=== PATIENT | male | born 1940 | race Caucasian/White ===

== ENCOUNTER 2016-07-31 13:30 | Inpatient (IN) | payer OTHER, MEDICARE ==
[2016-07-31] MEDS ORDERED: HEPARIN 10,000 UNIT/10 ML MDV IVP PRN (15:01)
[2016-07-31] MEDS ORDERED: HEPARIN 10,000 UNIT/10 ML MDV IVP ONE (15:01)
[2016-07-31 15:33] LABS: % IMMATURE GRANULYOCYTES 1.1 % (0.0-1.1); ABSOLUTE IMMATURE GRANULOCYTES 0.12 10^3/uL (0.00-0.10); ADD DIFF? NO; ADD MORPH? NO; ADD SCAN? NO; ATYPICAL LYMPHOCYTE FLAG 0 (0-99); FRAGMENT RBC FLAG 0 (0-99); LEFT SHIFT FLG 0 (0-99); LIPEMIA HEMOLYSIS FLAG 90 (0-99); MEAN CELL HEMOGLOBIN 34.1 pg (27.9-34.1); MEAN CELL HEMOGLOBIN CONCENTR. 34.1 g/dL (32.4-36.7); MEAN PLATELET VOLUME 9.4 fL (8.7-11.7); PLATELET CLUMPS FLAG 0 (0-99); PLATELET COUNT 194 10^3/uL (150-400); RED CELL DISTRIBUTION WIDTH 13.7 % (11.5-15.2)
[2016-07-31 15:37] LABS: INR 1.04 (0.83-1.16); PROTIME(PATIENT) 13.5 SEC (12.0-15.0)
[2016-07-31 15:38] LABS: APTT 23.5 SEC (23.0-38.0)
[2016-07-31] MEDS: HEPARIN/DEXTROSE 500 ML IV SCH (16:23)
[2016-07-31] MEDS ORDERED: MIDAZOLAM 2 MG/2 ML VIAL ONE (17:39)
[2016-07-31] MEDS ORDERED: fentaNYL 100 MCG/2 ML INJ ONE (17:39)
--- NOTE | 2016-07-31 18:23 | SOAPPROG ---
SOAP Progress Note Assessment/Plan: Assessment: Plan: 07/31/16 18:26 1. Pulmonary embolism: Extensive PE, L>R. Pulmonary consult requested and bilateral lower extremity venous doppler obtained showing DVT in R superficial femoral vein (presumably, though dictation states artery), extending between groin and mid-thigh. CT angiogram reviewed by Dr. Snowden, Dr. Soni, Dr. Whalen, and Dr. Duran. Was not felt that pt had saddle embolus, but did have large clot burden on L involving pulmonary artery, and that placement of filter was appropriate. Pt has since had that done, and is now on heparin drip. Per discussion with Dr. Snowden, tpa not appropriate given recent surgery. 2. RLE DVT 3. Hypertension: will continue lisinopril. 4. CAD: asymptomatic. On fish oil, vitamin D, K2. 5. Asthma: stable on Symbicort 6. Neuropathy: on gabapentin 7. recent R shoulder replacement. Subjective: 76 yo male with hx htn, mild CAD by coronary calcium scanning underwent R shoulder replacement 07/23/16 in [place]. Mobilized in hospital shortly after surgery, was placed on aspirin, and discharged to home on 07/26/16 feeling well. Is a hiker and was able to go on a 3-4 mile walk the day after discharge without any SOB, weakness. Yesterday afternoon, climbed a hill near his home that usually presents no difficulty and noted some heaviness in his legs and labored breathing. Rested when he returned home and had no further sx last night. Slept well. This morning, attempted to ride his stationary bike but felt too tired to pedal. Went upstairs and couldn't climb stairs without feeling very SOB and stopping to rest enroute. Chest felt tight. He did take a baby aspirin last night and this morning. He had also noticed that he was saturating in the upper 80s at home and that his heart rate was in the 90s. Usually he is in the 50s. He called the office this morning and came in. He was noted to be hypoxic, saturating 87% on RA, with a relative tachycardia of 89. RR was 16, and he was afebrile. EKG showed NSR with rate of 87, 1st degree heart block, and severe RAD. This was similar to EKG done 07/09/16. He'd had labs done on , and creatinine at that time was 1.0. CT angiogram was done in the office and showed extensive PE, primarily on the L side, though also involving the R side. I spoke with Dr. Soni and there was some question of saddle embolus, so he was admitted directly to the ICU. I also spoke with Dr. Snowden, requesting a pulmonary consult. Objective: Vital Signs Temp Pulse Resp BP Pulse Ox 36.8 C 92 14 137/84 H 97 07/31/16 16:00 07/31/16 17:00 07/31/16 17:00 07/31/16 17:00 07/31/16 17:00 Laboratory Results 07/31/16 15:20 PT 13.5 SEC (12.0-15.0) 07/31/16 15:20 INR 1.04 (0.83-1.16) 07/31/16 15:20 General: well-developed, well-nourished, not feeling well but NAD HEENT: PERRL, EOMI. Throat without erythema, exudate Neck: no masses, adenopathy Lungs: clear bilaterally Cardiovascular: RRR without murmur Chest: diffuse ecchymoses Extremities: no clubbing, cyanosis, edema Neurologic: moving all extremities except R shoulder which is guards carefully Psychiatric: alert, oriented ICD10 Worksheet Patient Problems: Problems Problem Status Onset DVT (deep venous thrombosis) Acute Pulmonary embolism Acute
--- NOTE | 2016-07-31 18:24 | POSTOPPROG ---
Post Op Note Date of Operation: 07/31/16 Surgeon: Martha Duran Pre-op Diagnosis: PE and DVT Post-op Diagnosis: same Indication: high risk for more PE Procedure: IVC filter placement Findings: No clot in IVC Inf/Abcess present in the surg proc area at time of surgery?: No Depth: Superfical (Skin SQ) EBL: Minimal Complications: None
[2016-07-31] MEDS ORDERED: LACTULOSE 20 GM/30 ML UDCUP PO PRN (19:24)
[2016-07-31] MEDS ORDERED: POLYETHYLENE GLYCOL 3350 17 GM PKT PO PRN (19:24)
[2016-07-31] MEDS ORDERED: ONDANSETRON 4 MG/2 ML VIAL IVP PRN (19:24)
[2016-07-31] MEDS ORDERED: ONDANSETRON DISINTEGRATING 4 MG TAB PO PRN (19:24)
[2016-07-31] MEDS ORDERED: BISACODYL 10 MG SUPP PR PRN (19:24)
[2016-07-31] MEDS ORDERED: MAGNESIUM HYDROXIDE 30 ML UDCUP PO PRN (19:24)
[2016-07-31] MEDS ORDERED: FLUTICASONE NASAL 120 SPRAYS/16 GM MDI EACHNARE PRN (19:28)
--- NOTE | 2016-07-31 20:56 | GHP ---
[f rep st] HISTORY AND PHYSICAL DATE OF ADMISSION: 07/31/2016 HISTORY OF PRESENT ILLNESS: The patient is a 76-year-old male with a history of hypertension and mild coronary artery disease by coronary calcium scanning who underwent a right shoulder replacement on 07/23/2016 in [place]. He easily mobilized within the hospital shortly after surgery. He was placed on aspirin and then subsequently discharged to home on 07/26/2016 feeling well. He is a hiker, and he was able to go on a 3-4 mile walk the day following discharge without any shortness of breath or weakness. He continued to hike for the next couple of days without any problems, but then yesterday afternoon he climbed a hill near his home that usually presents no difficulty to him and noted some heaviness in his legs and labored breathing. He rested when he returned home and had no further symptoms. Last night, he slept well. This morning, he attempted to ride his stationary bike, but felt too tired to pedal so did not do so. He then went upstairs and found that he could not climb the stairs without feeling very short of breath and needing to stop to rest en route. His chest felt tight. He did take a baby aspirin last night and this morning. He had also been noticing that he was saturating in the upper 80s at home and that his heart rate was in the 90s. Usually, his heart rate is in the 50s, and he saturates well into the 90s. He did not feel well, and he called the office this morning and came in for further evaluation. He was noted to be hypoxic with an O2 saturation of 87% on room air. He had a relative tachycardia of 89. Respiratory rate was 16, and he was afebrile. His EKG showed a normal sinus rhythm with a rate of 87, a first-degree heart block, and severe right axis deviation. His EKG was similar to an EKG done on 07/09/2016. He had labs done on 07/09/2016, and his creatinine at that time was 1.0. Thus, a CT angiogram was done in the office and showed extensive pulmonary embolism, primarily on his left side, though also involving the right side. I spoke with Dr. Soni, and there was some question of a possible saddle embolus, so the decision was made to admit him directly to ICU. At that time, I spoke with Dr. Snowden requesting a pulmonary consult. PAST MEDICAL HISTORY: Significant for: 1. Sleep apnea. He has been on CPAP in the past, but several years ago lost a fair amount of weight and has no longer needed to be on CPAP. 2. Asthma. 3. Coronary atherosclerosis with a percentile ranking of approximately 10%. 4. Hypertension. 5. Neuropathy. MEDICATIONS: Symbicort 160/4.5 mcg 2 puffs twice a day, gabapentin 600 mg t.i.d., tizanidine 4 mg at bedtime, lisinopril 40 mg daily, fluticasone nasal spray as needed, vitamin K2 100 mcg daily, vitamin D3 2000 international units daily, fish oil 1400 mg twice daily. ALLERGIES: No known allergies. PAST SURGICAL HISTORY: Lumbar spine in 2012, left hip in 2012, several left foot and ankle surgeries, right ankle reconstruction, tonsillectomy, UPPP for sleep apnea, hernia, left partial knee replacement. FAMILY HISTORY: His mother at the age of 72 and was a smoker and had COPD. His father at 59 and was a smoker, alcoholic, and had coronary artery disease. His brother younger than 60 from a brain tumor and lung cancer. SOCIAL HISTORY: He is and lives with his . He is a former smoker, having quit more than 10 years ago. Alcohol use: He drinks an occasional beer. He has 3 children. 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 He exercises regularly. REVIEW OF SYSTEMS: CONSTITUTIONAL: No fever or chills. Recent fatigue. Mild headache. HEENT: No head congestion or sore throat. RESPIRATORY: Shortness of breath as noted per HPI, along with chest heaviness. No cough, wheeze, or pleuritic chest pain. CARDIOVASCULAR: Chest heaviness, but no adrian chest pain. Mild tachycardia. GASTROINTESTINAL: No nausea, vomiting, diarrhea, or constipation. No abdominal pain. EXTREMITIES: No edema. PHYSICAL EXAMINATION: VITAL SIGNS: Weight is 160, temperature 96.5, heart rate 89, respiratory rate 16, O2 saturation 87% on room air. GENERAL: A well- developed, well-nourished male, not feeling well, but in no acute distress. HEENT: Pupils are equal, round, and reactive to light. Extraocular movements are intact. Throat is without erythema or exudate. NECK: No masses or adenopathy. LUNGS: Clear bilaterally. CARDIOVASCULAR: Regular rate and rhythm, without murmur. CHEST: Shows diffuse ecchymoses. EXTREMITIES: No clubbing, cyanosis, or edema. NEUROLOGIC: He is moving all extremities except his right shoulder which he guards carefully. PSYCHIATRIC: He is alert, oriented, and cooperative. ASSESSMENT AND PLAN: 1. Pulmonary embolism: Extensive pulmonary embolism, left greater than right. A pulmonary consult was requested, and bilateral lower extremity venous Doppler was obtained showing a DVT in the right superficial femoral vein ( presumably; the [facility] states artery) extending between the groin and the mid thigh. CT angiogram was reviewed by Dr. Snowden, Dr. Soni, Dr. Whalen, and Dr. Duran, and it was not felt that he had a saddle embolus, but he did have a large clot burden involving the left pulmonary artery. It was felt that filter placement was appropriate due to the DVT. The patient has since had that done and is now on a heparin drip. Per discussion with Dr. Snowden, tPA was not appropriate given his recent surgery. 2. Right lower extremity deep vein thrombosis, most likely related to the recent surgery, as is the pulmonary embolism. 3. Hypertension. We will continue lisinopril. 4. Coronary artery disease, asymptomatic. On fish oil, vitamin D and K2. 5. Asthma. Stable on Symbicort. 6. Neuropathy. On gabapentin. 7. Right shoulder replacement. /[id number]/MODL MTDD
[2016-07-31] MEDS: BUDESONIDE/FORMOTEROL 160/4.5 60 PUFFS/MDI IH SCH (21:05)
[2016-07-31] MEDS: LISINOPRIL 40 MG TAB PO SCH (21:09)
[2016-07-31] MEDS: SENNOSIDES/DOCUSATE SODIUM TAB PO SCH ×2 (21:10→21:55)
[2016-07-31] MEDS: GABAPENTIN 300 MG CAP PO SCH (21:10)
[2016-07-31] MEDS ORDERED: TEMAZEPAM 15 MG CAP PO PRN (21:58)
[2016-08-01 06:49] LABS: ABSOLUTE IMMATURE GRANULOCYTES 0.08 10^3/uL (0.00-0.10); ADD DIFF? NO; ADD MORPH? NO; ADD SCAN? NO; ATYPICAL LYMPHOCYTE FLAG 10 (0-99); FRAGMENT RBC FLAG 0 (0-99); HEMATOCRIT 37.9 % (40.0-51.0); HEMOGLOBIN 12.9 g/dL (13.7-17.5); LEFT SHIFT FLG 0 (0-99); LIPEMIA HEMOLYSIS FLAG 90 (0-99); MEAN CELL HEMOGLOBIN 34.2 pg (27.9-34.1); MEAN CELL VOLUME 100.5 fL (81.5-99.8); MEAN PLATELET VOLUME 9.9 fL (8.7-11.7); PLATELET CLUMPS FLAG 0 (0-99); PLATELET COUNT 192 10^3/uL (150-400); RED BLOOD CELL COUNT 3.77 10^6/uL (4.40-6.38); RED CELL DISTRIBUTION WIDTH 13.8 % (11.5-15.2)
[2016-08-01 07:28] LABS: ALANINE AMINOTRANSFERASE 35 IU/L (21-72); ALKALINE PHOSPHATASE 58 IU/L (38-126); ANION GAP 7 mEq/L (8-16); ASPARTATE AMINOTRANSFERASE 31 IU/L (17-59); BILIRUBIN,TOTAL 0.7 mg/dL (0.1-1.4); CALCIUM 8.7 mg/dL (8.5-10.4); CARBON DIOXIDE 24 mEq/l (22-31); CHLORIDE 110 mEq/L (97-110); CREATININE 0.8 mg/dL (0.7-1.3); GLOMERULAR FILTRATION RATE > 60; GLUCOSE 104 mg/dL (70-100); POTASSIUM 4.4 mEq/L (3.5-5.2); SODIUM 141 mEq/L (134-144); TOTAL PROTEIN 5.4 g/dL (6.3-8.2)
[2016-08-01] MEDS: HEPARIN/DEXTROSE 500 ML IV SCH (08:31)
[2016-08-01] MEDS: GABAPENTIN 300 MG CAP PO SCH ×2 (09:32→15:37)
[2016-08-01] MEDS: SENNOSIDES/DOCUSATE SODIUM TAB PO SCH (09:33)
[2016-08-01] MEDS: BUDESONIDE/FORMOTEROL 160/4.5 60 PUFFS/MDI IH SCH ×2 (09:34→21:01)
--- NOTE | 2016-08-01 13:46 | PDINTPN ---
Access Database Developer Progress Note Assessment/Plan: Assessment: Large PE: Hemodynamically stable, no symptoms at rest. Likely a result of shoulder surgery with decreased activity. DVT: Right femoral. S/P IVC filter placement. Asymptomatic. Plan: Continue IV heparin. Transition to Lovenox/Coumadin vs. NOAC. If does well. could go home in 1-2 days. IVC filter retrieval in 1-2 months barring any complications. 08/01/16 13:47 Subjective: Feels better, no CP, dyspnea, leg pain/swelling. Objective: Vital Signs Temp Pulse Resp BP Pulse Ox 36.6 C 72 12 95/55 L 95 08/01/16 08:00 08/01/16 10:00 08/01/16 10:00 08/01/16 10:00 08/01/16 10:00 Laboratory Results 08/01/16 06:30 08/01/16 06:30 07/31/16 08/01/16 08/02/16 05:59 05:59 05:59 Intake Total 1020 Output Total 1500 450 Balance -480 -450 PT 13.5 SEC (12.0-15.0) 07/31/16 15:20 INR 1.04 (0.83-1.16) 07/31/16 15:20 IVC Filter placement: Filter in appropriate infrarenal position. Images reviewed. Physical Exam - Physical Exam General Appearance: alert, no apparent distress EENT: normal ENT inspection Neck: normal inspection Respiratory: lungs clear, No normal breath sounds Cardiac/Chest: regular rate, rhythm, No edema Abdomen: normal bowel sounds, non-tender, soft Skin: normal color, warm/dry Extremities: normal inspection Neuro/Psych: alert, normal mood/affect, oriented x 3 ICD10 Worksheet Patient Problems: Problems Problem Status Onset DVT (deep venous thrombosis) Acute Pulmonary embolism Acute
[2016-08-01] MEDS: ACETAMINOPHEN 325 MG TAB PO PRN ×2 (14:15→19:47)
--- NOTE | 2016-08-01 14:23 | GCON ---
[f rep st] CONSULTATION PULMONARY/CRITICAL CARE CONSULTATION. DATE OF CONSULTATION: 07/31/2016 REFERRING PHYSICIAN: Miryam Elise MD REASON FOR REFERRAL: Evaluation and management of acute pulmonary embolism and DVT. HISTORY: The patient is a 76-year-old gentleman who underwent shoulder replacement on 07/23 in [place]. He did well after surgery. He is an avid hiker and was able to do walks within a few days of discharge without any significant shortness of breath or weakness. The day before admission he noted increased dyspnea with his usual walking. On the day of admission, he had dyspnea with light exertion around his home and he had some chest tightness. He also checked his oxygen saturations and found that they were in the upper 80s. He presented to Dr. Elise' office where a CT scan of the chest was performed and found a large pulmonary embolism. The patient was admitted emergently to the hospital. He currently states that he does not feel dyspneic or chest pressure at rest. He denies any leg pain or swelling. PAST MEDICAL HISTORY: 1. Sleep apnea. Previously treated with CPAP but the patient stopped CPAP after weight loss. 2. History of asthma. 3. Hypertension. 4. Neuropathy. MEDICATIONS: Include Symbicort, gabapentin, tizanidine, lisinopril, Flonase. ALLERGIES: None. SOCIAL HISTORY: The patient is and lives with his . He has a prior history of smoking, but stopped 10 years ago. 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 FAMILY HISTORY: Positive for chronic obstructive pulmonary disease. REVIEW OF SYSTEMS: A 10-point review of systems adds nothing to the history of present illness. PHYSICAL EXAMINATION: GENERAL: The patient is awake, alert, and in no acute distress. VITAL SIGNS: His blood pressure is 156/103 with a heart rate of 94, he is afebrile. Oxygen saturations are 97% on 2 L. HEENT: Normocephalic and atraumatic. No icterus. NECK: No adenopathy, trachea is midline. CHEST: Clear to auscultation. CARDIAC: Regular rate and rhythm without murmur. ABDOMEN: Soft, nontender. Bowel sounds are present. EXTREMITIES: No clubbing , cyanosis, or edema. NEUROLOGIC: Alert and oriented. Moves all extremities normally with the exception of his right upper extremity which is immobilized postoperatively. LABORATORY: White blood count of 10.9, hemoglobin 14.00. Chemistry group was normal. A CT scan of the chest demonstrates a very large pulmonary embolism in the left main pulmonary artery that occludes the majority of the artery proximally and extends distally with only minimal flow seen more distally. There is a moderate -sized right pulmonary embolism. There is no saddle component. The intraventricular septum appears somewhat flattened, but not bowed into the left ventricle. Images reviewed. Ultrasound of the lower extremity shows a DVT in the right common femoral to midfemoral vein. ASSESSMENT: Large pulmonary embolism and deep venous thrombosis. The patient is hemodynamically stable and minimally symptomatic at rest. Nonetheless, he has a very large pulmonary embolism and I do not think would tolerate further emboli well. I have discussed this with the patient, his , as well as Dr. Duran from [facility]. The patient will be taken for IVC filter placement. He is not a candidate for tPA due to his recent shoulder surgery. The patient understands that there is some risk of further embolization and decompensation, but the placement of an IVC filter should minimize this risk. The patient will be started on IV heparin and can be started on Coumadin as well. I instructed him that he will need to have reduced aerobic exercise intensity over the next 2-4 weeks to minimize strain on his right heart. I have also discussed my findings and recommendations with Dr. Elise who concurs. /[id number]/MODL MTDD
--- NOTE | 2016-08-01 18:13 | SOAPPROG ---
SOAP Progress Note Assessment/Plan: Assessment:Massive PE with persistent DVT in leg. Plan: Switch to xarelto 15mg BID starting tomorrow. Home Thursday if stable. OK to leave ICU now. 08/01/16 18:11 Subjective: Doing better today. Chest tightness is improved. Objective: Vital Signs Temp Pulse Resp BP Pulse Ox 36.8 C 65 14 111/46 L 93 08/01/16 16:00 08/01/16 16:00 08/01/16 16:00 08/01/16 16:00 08/01/16 16:00 Laboratory Results 08/01/16 06:30 08/01/16 06:30 07/31/16 08/01/16 08/02/16 05:59 05:59 05:59 Intake Total 1020 Output Total 1500 450 Balance -480 -450 PT 13.5 SEC (12.0-15.0) 07/31/16 15:20 INR 1.04 (0.83-1.16) 07/31/16 15:20 Lungs without rales. COR RRR. no leg edema. Minimal bruising at puncture site for inferior vena cava sieve. ICD10 Worksheet Patient Problems: Problems Problem Status Onset DVT (deep venous thrombosis) Acute Pulmonary embolism Acute - ICD10 Problem Qualifiers (1) Pulmonary embolism Qualifiers: Pulmonary embolism type: P Chronicity: acute Acute cor pulmonale presence : without acute cor pulmonale (2) DVT (deep venous thrombosis) Qualifiers: DVT location: D Affected thrombotic vein of extremity: A Laterality: L Chronicity: C
[2016-08-01] MEDS: LISINOPRIL 40 MG TAB PO SCH (19:47)
[2016-08-02] MEDS: GABAPENTIN 300 MG CAP PO SCH ×3 (02:16→15:05)
[2016-08-02] MEDS: SENNOSIDES/DOCUSATE SODIUM TAB PO SCH ×2 (02:16→08:47)
[2016-08-02] MEDS: ACETAMINOPHEN 325 MG TAB PO PRN (04:15)
[2016-08-02 08:00] VITALS: TEMP 98
[2016-08-02] MEDS: BUDESONIDE/FORMOTEROL 160/4.5 60 PUFFS/MDI IH SCH (08:47)
[2016-08-02] MEDS ORDERED: RIVAROXABAN 15 MG TAB PO SCH (09:00)
--- NOTE | 2016-08-02 10:55 | SOAPPROG ---
SOAP Progress Note Assessment/Plan: Assessment: Plan: 07/31/16 18:26 1. Pulmonary embolism: Extensive PE, L>R. Pulmonary consult requested and bilateral lower extremity venous doppler obtained showing DVT in R superficial femoral vein (presumably, though dictation states artery), extending between groin and mid-thigh. CT angiogram reviewed by Dr. Snowden, Dr. Soni, Dr. Whalen, and Dr. Duran. Was not felt that pt had saddle embolus, but did have large clot burden on L involving pulmonary artery, and that placement of filter was appropriate. Pt has since had that done, and is now on heparin drip. Per discussion with Dr. Snowden, tpa not appropriate given recent surgery. 2. RLE DVT 3. Hypertension: will continue lisinopril. 4. CAD: asymptomatic. On fish oil, vitamin D, K2. 5. Asthma: stable on Symbicort 6. Neuropathy: on gabapentin 7. recent R shoulder replacement. 08/02/16 10:55 Pulmonary embolism: hemodynamically stable. Off heparin, on Xarelto as of this morning. No hypoxia, off oxygen. Very anxious to go home. Discussed with Dr. Snowden. Will monitor through the day, and anticipate d/c early evening after Xarelto dose if he remains stable. Rx given to pt's for Xarelto so she can fill this today. RLE DVT: Has filter in place. Anticipate removal in 1-2 months. Hypertension: stable CAD: asymptomatic Asthma: stable Subjective: Feeling well. No SOB. Walking around ICU. Anxious to go home. Bed is very uncomfortable. Objective: Vital Signs Temp Pulse Resp BP Pulse Ox 36.7 C 73 13 106/53 L 95 08/02/16 07:59 08/02/16 07:59 08/02/16 07:59 08/02/16 07:59 08/02/16 07:59 Laboratory Results 08/01/16 06:30 08/01/16 06:30 08/01/16 08/02/16 08/03/16 05:59 05:59 05:59 Intake Total 1020 2059 Output Total 1500 450 Balance -480 1609 PT 13.5 SEC (12.0-15.0) 07/31/16 15:20 INR 1.04 (0.83-1.16) 07/31/16 15:20 General: well-appearing, NAD Lungs: clear Cardiovascular: RRR without murmur Extremities: no edema. Dressing over R groin site without evidence of bleeding. ICD10 Worksheet Patient Problems: Problems Problem Status Onset DVT (deep venous thrombosis) Acute Pulmonary embolism Acute
--- NOTE | 2016-08-02 12:15 | PDINTPN ---
Sponsorship Manager Progress Note Assessment/Plan: Assessment: Large PE: Hemodynamically stable, no symptoms at rest. Likely a result of shoulder surgery with decreased activity. DVT: Right femoral. S/P IVC filter placement. Asymptomatic. No off heparin, on Xarelto Plan: Continue Xarelto. Limited activity for 2 weeks, then gradually increase activity over the following 4-6 weeks. IVC filter retrieval in 1-2 months barring any complications, consider checking U/S before removal. I'm happy to see the patient in follow-up. 08/02/16 12:11 Subjective: Feels OK, no dyspnea, CP, leg swelling. Objective: Vital Signs Temp Pulse Resp BP Pulse Ox 36.7 C 73 13 106/53 L 95 08/02/16 07:59 08/02/16 07:59 08/02/16 07:59 08/02/16 07:59 08/02/16 07:59 Laboratory Results 08/01/16 06:30 08/01/16 06:30 08/01/16 08/02/16 08/03/16 05:59 05:59 05:59 Intake Total 1020 2059 Output Total 1500 450 Balance -480 1609 PT 13.5 SEC (12.0-15.0) 07/31/16 15:20 INR 1.04 (0.83-1.16) 07/31/16 15:20 Physical Exam - Physical Exam General Appearance: alert, no apparent distress EENT: normal ENT inspection Neck: normal inspection Respiratory: lungs clear Cardiac/Chest: regular rate, rhythm, No edema Abdomen: normal bowel sounds, non-tender Skin: normal color, warm/dry Extremities: normal inspection, other (right shoulder immobilized) Neuro/Psych: alert, normal mood/affect, oriented x 3 ICD10 Worksheet Patient Problems: Problems Problem Status Onset DVT (deep venous thrombosis) Acute Pulmonary embolism Acute
[2016-08-02 15:08] VITALS: BP 106/59; PULSE 84; RESP 16; O2SAT 98
== END 2016-08-02 17:00 | disposition home or self-care (01) | DRG 167 ==
LOC: F2N 14:28 → PREOBSVTOIN 14:32
PROVIDERS: ADMIT Internal Medicine; ATTEND Internal Medicine
PROC: 06H03DZ Insertion of Intraluminal Device into Inferior Vena Cava, Percutaneous Approach (ICD-10-PCS; principal; 2016-07-31)
DX: I26.99 Other pulmonary embolism without acute cor pulmonale (principal); I82.811 Embolism and thrombosis of superficial veins of right lower extremity; G47.30 Sleep apnea, unspecified; J45.909 Unspecified asthma, uncomplicated; I10 Essential (primary) hypertension; G62.9 Polyneuropathy, unspecified; I25.10 Atherosclerotic heart disease of native coronary artery without angina pectoris; Z96.611 Presence of right artificial shoulder joint
CPT/HCPCS: 85520-90; C1769; J1644; J2250; J3010

== ENCOUNTER 2016-10-20 11:55 | Day surgery (SDC) | payer OTHER, MEDICARE ==
[2016-10-20] MEDS ORDERED: NS 1,000 ML IV SCH (12:30)
[2016-10-20 12:50] LABS: HEMATOCRIT 47.4 % (40.0-51.0)
[2016-10-20 13:01] LABS: GLOMERULAR FILTRATION RATE > 60
[2016-10-20 13:03] LABS: APTT 24.4 SEC (23.0-38.0); INR 0.94 (0.83-1.16); PROTIME(PATIENT) 12.5 SEC (12.0-15.0)
[2016-10-20] MEDS ORDERED: FLUMAZENIL 0.5 MG/5 ML MDV IVP ONE (13:19)
[2016-10-20] MEDS ORDERED: fentaNYL 100 MCG/2 ML INJ ONE (13:20)
[2016-10-20] MEDS ORDERED: NALOXONE HCL 0.4 MG/ML INJ ONE (13:20)
[2016-10-20] MEDS ORDERED: MIDAZOLAM 2 MG/2 ML VIAL ONE (13:20)
[2016-10-20] MEDS ORDERED: IOPAMIDOL (ISOVUE-300) 100 ML BTL ONE (13:57)
[2016-10-20] MEDS ORDERED: ACETAMINOPHEN 325 MG TAB PO PRN (14:23)
[2016-10-20] MEDS ORDERED: ONDANSETRON 4 MG/2 ML VIAL IVP PRN (14:24)
== END 2016-10-20 15:05 | disposition home or self-care (01) ==
LOC: FIMAGING 11:55
PROVIDERS: ATTEND Internal Medicine Critical Care Medicine
PROC: 06PY3DZ Removal of Intraluminal Device from Lower Vein, Percutaneous Approach (ICD-10-PCS; principal; 2016-10-20 14:05)
DX: I82.411 Acute embolism and thrombosis of right femoral vein (principal)
CPT/HCPCS: 37193; 75825; 99152; C1769; C1773; C1892; J1644; J2250; J2310; J3010; Q9967

== ENCOUNTER → 2017-05-07 | Outpatient (CLI) | payer OTHER, MEDICARE ==
[~2017-05-07] MED LIST: IOPAMIDOL (ISOVUE 370) 100 ML BTL IV ONE
== END ==
LOC: FIMAGING 09:35
PROVIDERS: ATTEND Internal Medicine Critical Care Medicine
DX: I26.99 Other pulmonary embolism without acute cor pulmonale (principal); I82.511 Chronic embolism and thrombosis of right femoral vein; Z86.711 Personal history of pulmonary embolism
CPT/HCPCS: 71275; 93970; Q9967